=== PATIENT | female | born 1955 | race Caucasian/White ===

== ENCOUNTER → 2023-07-12 11:34 | Outpatient (CLI) | payer OTHER, SELFPAY ==
--- NOTE | ~2023-07-12 | XR_ITS ---
EXAM: XR hip BI wo pelvis DATE: 07/12/2023 12:16 HISTORY: VIKA HIP PAIN . COMPARISON: None available. FINDINGS: Lumbar degenerative disc disease. Mild degenerative changes in the bilateral hips and pubi c symphysis. Unremarkable SI joints. Normal mineralization. No fracture or dislocation. Minimal scatt ered vascular calcifications. IMPRESSION: Mild bilateral hip osteoarthritis. Osteitis pubis. Reviewed, dictated and finalized at location [facility] [employer] [facility]
== END ==
PROVIDERS: PCP Family Medicine; Visit Provider Family Medicine
DX: M16.0 Bilateral primary osteoarthritis of hip (principal)
CPT/HCPCS: 73521

== ENCOUNTER 2023-08-13 15:01 | Emergency (ER) | payer OTHER, SELFPAY ==
[2023-08-13 15:12] VITALS: BP 132/108; PULSE 68; RESP 16; TEMP 36.4; O2SAT 99
--- NOTE | 2023-08-13 15:28 | ED.URI ---
HPI - URI/Sore Throat General Chief Complaint: Upper Respiratory Infection Stated Complaint: COVID + Time Seen by Provider: 08/13/23 15:35 Source: patient and RN notes reviewed Mode of arrival: ambulatory Limitations: no limitations History of Present Illness HPI Narrative: 67-year-old female presents with concern for positive COVID test at home. She reports she has had symptoms since Friday and she starting to feel better. She still has some nasal congestion for which she has been taking Coricidin HBP. She denies shortness of breath. MD elicited complaint: nasal congestion Related Data Home Medications Medication Instructions Recorded Confirmed albuterol sulfate 90 mcg/actuation 2 puff inhalation PRN PRN Wheezing 08/13/23 08/13/23 aerosol inhaler alclometasone 0.05 % topical cream 1 applic topical DAILY 08/13/23 08/13/23 amlodipine 5 mg tablet 5 mg PO DAILY 08/13/23 08/13/23 benazepril 20 mg tablet 20 mg PO DAILY 08/13/23 08/13/23 blood-glucose sensor ([employer] G7 08/13/23 08/13/23 Sensor device) clopidogrel 75 mg tablet 75 mg PO DAILY 08/13/23 08/13/23 dapagliflozin propanediol 10 mg 10 mg PO DAILY 08/13/23 08/13/23 tablet (Farxiga) desonide 0.05 % topical ointment 1 applic topical DAILY 08/13/23 08/13/23 dulaglutide 3 mg/0.5 mL 3 mg subcut WE 08/13/23 08/13/23 subcutaneous pen injector (Trulicity) ezetimibe 10 mg tablet 10 mg PO DAILY 08/13/23 08/13/23 famotidine 40 mg tablet 40 mg PO DAILY 08/13/23 08/13/23 folic acid-vit B6-vit B12 2.5 1 tablet PO DAILY 08/13/23 08/13/23 mg-25 mg-2 mg tablet (WesTab Max) glipizide 10 mg tablet 10 mg PO DAILY 08/13/23 08/13/23 metformin 1,000 mg tablet 1,000 mg PO BID 08/13/23 08/13/23 metoprolol succinate 100 mg 100 mg PO DAILY 08/13/23 08/13/23 tablet,extended release 24 hr milnacipran 100 mg tablet (Savella) 100 mg PO DAILY 08/13/23 08/13/23 pitavastatin calcium 4 mg tablet 4 mg PO DAILY 08/13/23 08/13/23 vibegron 75 mg tablet (Gemtesa) 75 mg PO DAILY 08/13/23 08/13/23 Allergies Allergy/AdvReac Type Severity Reaction Status Date / Time meperidine Allergy Severe PALPATATIONS, Unverified 10/28/14 17:31 RASH Sulfa (Sulfonamide Allergy Intermediate Nausea and Unverified 08/13/23 15:26 Antibiotics) Vomiting [id number]-[id number] Reductase Allergy Mild Weakness Verified 08/13/23 15:26 Inhibitor [Vlgfwsy-Tbt-Bic Reductase Inhibitor] lisinopril AdvReac Mild Swelling Verified 08/13/23 15:26 nifedipine AdvReac Mild Swelling Verified 08/13/23 15:26 Review of Systems Review of Systems: CONSTITUTIONAL: Denies malaise, chills, sweats, or fever. EYES: Denies visual changes, redness, or discharge. ENT: Reports rhinorrhea, congestion CARDIOVASCULAR: Denies chest pain, palpitations, or edema. RESPIRATORY: Reports cough. Denies dyspnea. GASTROINTESTINAL: Denies abdominal pain, nausea, vomiting, diarrhea SKIN: Denies rash or itching. MUSCULOSKELETAL: Denies myalgia. NEUROLOGIC: Denies headache. All systems reviewed & are unremarkable except as noted in HPI and below PMFSH Comments At time of signature, agree with nursing past medical, surgical, social and family history. There is no relevant family history pertinent to the presenting complaint Exam Narrative: GENERAL: Well-appearing, well-nourished, and in no acute distress. HEAD: Normocephalic EYES: PERRLA, conjunctivae clear ENT: Nares clear. Mucous membranes moist. TM pearly dowd with dull light reflex bilaterally; no tragal tenderness. Oropharynx not erythematous without lesions. Tonsils not enlarged and without exudate, no drooling, no hoarseness, no trismus, uvula midline. NECK: Supple. No lymphadenopathy CHEST: Clear to auscultation, breath sounds equal. No wheezing, rhonchi, rales, or stridor. No respiratory distress, speaks in full sentences. HEART: Regular rate and rhythm. No murmur heard. SKIN: Warm, dry, no rash. NEURO: Alert and oriented x3. PSYCH: Normal mood and affect Course
[2023-08-13 15:30] VITALS: O2SAT 96
== END 2023-08-13 16:04 | disposition home or self-care (01) ==
PROVIDERS: Emergency Provider Nurse Practitioner; PCP Family Medicine
DX: U07.1 COVID-19 (principal); Z79.899 Other long term (current) drug therapy; Z79.84 Long term (current) use of oral hypoglycemic drugs
CPT/HCPCS: 99211; G0463